=== PATIENT | male | born 1935 | race Caucasian/White ===

== ENCOUNTER → 2017-10-27 | Outpatient (CLI) | payer MEDICARE, OTHER ==
[~2017-10-27] MED LIST: ACIPHEX20 MG PO; ANTIVERT 25MG25 MG PO; ASPIR-LOW81 MG PO; ASPIRIN 32325 MG/TAB PO; ASPIRIN 81M81 MG/TA2 PO; BENAZEPRIL; CENTRUM SILVER1 TAB PO; DIAZEPAM PO; FLEXERIL 1010 MG/TAB PO; FOLIC ACID0.4 MG PO; HCTZ 25MG25 MG PO; LORTAB 5/500 501 TAB PO; LOTENSIN 1010 MG/TAB PO; MVI; NASONEX SPRAY; NEXIUM 20MG CAP20 MG PO; PAPAVERINE; VYTORIN; XALATAN EYE DROPS OU; [UNRECOGNIZED DRUG - OTHER]
== END ==
LOC: COL.RAD 08:48
DX: M25.78 Osteophyte, vertebrae (principal); M99.71 Connective tissue and disc stenosis of intervertebral foramina of cervical region; M50.31 Other cervical disc degeneration, high cervical region; M48.02 Spinal stenosis, cervical region

== ENCOUNTER → 2018-01-16 | Outpatient (CLI) | payer MEDICARE, OTHER | LOC: MHCPAIN 08:22 | DX: G89.29 Other chronic pain (principal); M54.12 Radiculopathy, cervical region; M47.812 Spondylosis without myelopathy or radiculopathy, cervical region; M48.02 Spinal stenosis, cervical region | CPT/HCPCS: G0463 ==

== ENCOUNTER → 2018-01-18 | Outpatient (CLI) | payer MEDICARE, OTHER | LOC: MHCPAIN 13:20 | DX: M54.12 Radiculopathy, cervical region (principal); M50.90 Cervical disc disorder, unspecified, unspecified cervical region | CPT/HCPCS: J1100; J2250; J3010; Q9967 ==

== ENCOUNTER 2018-01-25 15:03 | Emergency (ER) | payer MEDICARE, OTHER ==
[~2018-01-25] VITALS: Ht 182.9 cm; Wt 108.2 kg
[2018-01-25 15:07] VITALS: TEMP 98.2
[2018-01-25] MEDS ORDERED: ZOFRAN 4MG T4 MG/TAB PO (17:01)
[2018-01-25 17:30] LABS: BASO # 0.1 (0.0-0.2); BASO % 0.5 % (0.0-2.0); EOS # 0.3 (0.0-0.7); EOS % 2.3 % (0-4.0); GRAN # 9.7 (1.4-6.5); GRAN % 81.1 % (42.2-75.2); HEMATOCRIT 43.3 % (42.0-52.0); HEMOGLOBIN 14.2 g/dl (13.5-18.0); LYMPH # 1.2 (1.2-3.4); LYMPH % 10.1 % (20.0-51.0); MEAN CELL VOLUME 93 fl (80.0-100.0); MEAN CORPUSCULAR HEMOGLOBIN 31 pg (27.0-31.0); MEAN CORPUSCULAR HGB CONC 33 g/dl (33.0-37.0); MEAN PLATELET VOLUME 10.7 fl (7.4-10.4); MONO # 0.7 (0.1-0.6); MONO % 5.6 % (1.7-9.3); PLATELET COUNT 214 K/mm3 (130-400); RED BLOOD COUNT 4.65 M/mm3 (4.20-5.60); REDCELL DISTRIBUTION WIDTH-CV 12.5 % (11.5-14.5)
[2018-01-25 17:39] LABS: ALBUMIN 4.1 gm/dL (3.5-5.0); BILIRUBIN,TOTAL 1.2 mg/dL (0.0-1.0); CALCIUM 9.1 mg/dL (8.4-10.2); POTASSIUM 3.7 mmol/L (3.4-5.0); TOTAL PROTEIN 7.4 gm/dL (6.4-8.2)
[2018-01-25 19:18] VITALS: BP 116/72; PULSE 78
== END 2018-01-25 19:18 | disposition home or self-care (01) ==
LOC: COL.ER 15:03
PROVIDERS: Emergency Medicine
DX: R42 Dizziness and giddiness (principal); Z79.82 Long term (current) use of aspirin
CPT/HCPCS: Q9967

== ENCOUNTER → 2018-01-30 | Outpatient (CLI) | payer MEDICARE, OTHER ==
[~2018-01-30] MED LIST changes: +ZOFRAN 4MG T4 MG/TAB PO
== END ==
LOC: MHCPAIN 07:59
DX: G89.29 Other chronic pain (principal); M50.90 Cervical disc disorder, unspecified, unspecified cervical region; M54.12 Radiculopathy, cervical region; M54.81 Occipital neuralgia; R51 Headache; M48.02 Spinal stenosis, cervical region
CPT/HCPCS: G0463

== ENCOUNTER → 2018-02-08 | Outpatient (CLI) | payer MEDICARE, OTHER | LOC: MHCPAIN 14:19 | DX: M54.12 Radiculopathy, cervical region (principal); M50.90 Cervical disc disorder, unspecified, unspecified cervical region | CPT/HCPCS: J1100; Q9967 ==

== ENCOUNTER 2018-02-28 15:45 | Outpatient (RCR) | payer MEDICARE, OTHER | END 2018-03-06 14:12 | disposition home or self-care (01) | LOC: WSPT 15:45 | DX: M48.02 Spinal stenosis, cervical region (principal); M47.22 Other spondylosis with radiculopathy, cervical region; Z79.82 Long term (current) use of aspirin; Z79.899 Other long term (current) drug therapy | CPT/HCPCS: G8978-GP; G8979-GP; G8980-GP ==

== ENCOUNTER → 2018-03-28 | Outpatient (CLI) | payer MEDICARE, OTHER | LOC: COL.RAD 09:49 | DX: M50.322 Other cervical disc degeneration at C5-C6 level (principal) ==

== ENCOUNTER 2018-06-18 13:00 | Outpatient (RCR) | payer MEDICARE, OTHER | END 2018-07-11 13:17 | disposition home or self-care (01) | LOC: WSPT 13:00 | DX: M54.2 Cervicalgia (principal); R26.81 Unsteadiness on feet | CPT/HCPCS: G8978-GP; G8979-GP ==

== ENCOUNTER → 2018-07-03 | Outpatient (CLI) | payer MEDICARE, OTHER | LOC: MHCPAIN 08:00 | DX: G89.29 Other chronic pain (principal); M47.817 Spondylosis without myelopathy or radiculopathy, lumbosacral region; M54.16 Radiculopathy, lumbar region; M53.3 Sacrococcygeal disorders, not elsewhere classified; M48.061 Spinal stenosis, lumbar region without neurogenic claudication | CPT/HCPCS: G0463 ==

== ENCOUNTER → 2018-07-05 | Outpatient (CLI) | payer MEDICARE, OTHER | LOC: MHCPAIN 08:58 | DX: M47.817 Spondylosis without myelopathy or radiculopathy, lumbosacral region (principal); M54.16 Radiculopathy, lumbar region | CPT/HCPCS: J1100; Q9967 ==

== ENCOUNTER → 2018-07-16 | Outpatient (CLI) | payer MEDICARE, OTHER | LOC: MHCPAIN 10:15 | DX: G89.29 Other chronic pain (principal); M47.817 Spondylosis without myelopathy or radiculopathy, lumbosacral region; M54.16 Radiculopathy, lumbar region; M53.3 Sacrococcygeal disorders, not elsewhere classified; M96.1 Postlaminectomy syndrome, not elsewhere classified; M48.061 Spinal stenosis, lumbar region without neurogenic claudication | CPT/HCPCS: G0463 ==

== ENCOUNTER → 2018-07-19 | Outpatient (CLI) | payer MEDICARE, OTHER | LOC: MHCPAIN 10:01 | DX: M47.817 Spondylosis without myelopathy or radiculopathy, lumbosacral region (principal); M54.16 Radiculopathy, lumbar region | CPT/HCPCS: J1100; Q9967 ==

== ENCOUNTER 2018-11-22 10:00 | Outpatient (RCR) | payer MEDICARE, OTHER | END 2018-12-21 17:39 | disposition home or self-care (01) | LOC: WSPT 10:00 | DX: M48.062 Spinal stenosis, lumbar region with neurogenic claudication (principal); M47.16 Other spondylosis with myelopathy, lumbar region ==

== ENCOUNTER 2019-02-16 08:22 | Emergency (ER) | payer MEDICARE, OTHER ==
[~2019-02-16] VITALS: Ht 182.9 cm; Wt 109.1 kg
[~2019-02-16 08:22] MED LIST changes: +FLONASEALLERGY NS; -NASONEX SPRAY; -NEXIUM 20MG CAP20 MG PO; +PRIL40 PO
[2019-02-16 08:29] VITALS: PULSE 83; TEMP 98.1
[2019-02-16 09:14] LABS: COLLECTION METHOD CLEAN CATCH
[2019-02-16 09:18] LABS: BASO # 0.1 (0.0-0.2); BASO % 1.1 % (0.0-2.0); EOS # 0.4 (0.0-0.7); EOS % 4.9 % (0-4.0); GRAN # 5.8 (1.4-6.5); GRAN % 70.1 % (42.2-75.2); HEMATOCRIT 44.7 % (42.0-52.0); HEMOGLOBIN 14.7 g/dl (13.5-18.0); LYMPH # 1.3 (1.2-3.4); LYMPH % 15.6 % (20.0-51.0); MEAN CELL VOLUME 95 fl (80.0-100.0); MEAN CORPUSCULAR HEMOGLOBIN 31 pg (27.0-31.0); MEAN CORPUSCULAR HGB CONC 33 g/dl (33.0-37.0); MEAN PLATELET VOLUME 10.5 fl (7.4-10.4); MONO # 0.7 (0.1-0.6); MONO % 8.1 % (1.7-9.3); PLATELET COUNT 241 K/mm3 (130-400); RED BLOOD COUNT 4.73 M/mm3 (4.20-5.60); REDCELL DISTRIBUTION WIDTH-CV 12.7 % (11.5-14.5)
[2019-02-16 09:25] LABS: MUCOUS Present /lpf; PH 5 (5-8); SQUAMOUS EPITHELIAL None Seen /hpf; URINE APPEARANCE Clear; URINE BACTERIA None Seen /hpf; URINE BILIRUBIN Negative (NEGATIVE); URINE BLOOD Negative (NEGATIVE); URINE COLOR Yellow; URINE GLUCOSE Negative (NEGATIVE); URINE KETONE Negative (NEGATIVE); URINE LEUKOCYTE ESTERASE Trace (NEGATIVE); URINE NITRATE Negative (NEGATIVE); URINE PROTEIN(semi-quant) Negative (NEGATIVE); URINE RBC 0-2 /hpf; URINE UROBILINOGEN Negative (NEGATIVE)
[2019-02-16 09:30] LABS: ALBUMIN 4.6 gm/dL (3.5-5.0); BILIRUBIN,TOTAL 1.2 mg/dL (0.0-1.0); CALCIUM 9.7 mg/dL (8.4-10.2); CREATININE, serum 0.93 (0.66-1.25); POTASSIUM 4.1 mmol/L (3.4-5.0)
[2019-02-16 09:37] LABS: C-REACTIVE PROTEIN 0.5 mg/dL (0.0-0.9)
[2019-02-16] MEDS ORDERED: COLESTID 1GM1 G PO (11:38)
[2019-02-16] MEDS ORDERED: VOLTAREN 75 DR75 MG PO (11:38)
[2019-02-16] MEDS ORDERED: TYLENOL 500MG500 MG PO (11:39)
[2019-02-16] MEDS ORDERED: NORCO 325 MG-51 TAB PO (14:04)
[2019-02-16] MEDS ORDERED: FLEXERIL 1010 MG/TAB PO (14:04)
[2019-02-16] MEDS ORDERED: OMNICEF 300MG300 MG PO (14:04)
[2019-02-16 14:30] VITALS: BP 156/84
== END 2019-02-16 14:30 | disposition home or self-care (01) ==
LOC: COL.ER 08:22
PROVIDERS: Emergency Medicine
DX: R10.31 Right lower quadrant pain (principal); E78.5 Hyperlipidemia, unspecified; I10 Essential (primary) hypertension; I25.10 Atherosclerotic heart disease of native coronary artery without angina pectoris; Z79.51 Long term (current) use of inhaled steroids; Z79.82 Long term (current) use of aspirin; Z87.442 Personal history of urinary calculi; Z95.5 Presence of coronary angioplasty implant and graft
CPT/HCPCS: J2405; J3010; J7030; Q9967

== ENCOUNTER → 2019-03-20 | Outpatient (CLI) | payer MEDICARE, OTHER ==
[~2019-03-20] MED LIST changes: +COLESTID 1GM1 G PO; +NORCO 325 MG-51 TAB PO; +OMNICEF 300MG300 MG PO; +TYLENOL 500MG500 MG PO; +VOLTAREN 75 DR75 MG PO
== END ==
LOC: MHCPAIN 14:30
DX: M47.817 Spondylosis without myelopathy or radiculopathy, lumbosacral region (principal); M54.16 Radiculopathy, lumbar region
CPT/HCPCS: G0463

== ENCOUNTER → 2019-04-04 | Outpatient (CLI) | payer MEDICARE, OTHER | LOC: MHCPAIN 10:23 | DX: M54.5 Low back pain (principal) | CPT/HCPCS: G0260; J1040; Q9967 ==

== ENCOUNTER → 2019-05-07 | Outpatient (CLI) | payer MEDICARE, OTHER | LOC: MHCPAIN 09:07 | DX: M47.817 Spondylosis without myelopathy or radiculopathy, lumbosacral region (principal); M54.16 Radiculopathy, lumbar region | CPT/HCPCS: G0463 ==

== ENCOUNTER → 2019-05-20 | Outpatient (CLI) | payer MEDICARE, OTHER | LOC: COL.RAD 09:11 | DX: M47.812 Spondylosis without myelopathy or radiculopathy, cervical region (principal); R26.81 Unsteadiness on feet ==

== ENCOUNTER → 2019-11-05 | Outpatient (CLI) | payer MEDICARE, OTHER | LOC: MHCPAIN 14:43 | DX: M47.817 Spondylosis without myelopathy or radiculopathy, lumbosacral region (principal); M54.5 Low back pain; M53.3 Sacrococcygeal disorders, not elsewhere classified; G89.29 Other chronic pain; M96.1 Postlaminectomy syndrome, not elsewhere classified | CPT/HCPCS: G0463 ==

== ENCOUNTER → 2019-11-28 | Outpatient (CLI) | payer MEDICARE, OTHER | LOC: MHCPAIN 07:57 | DX: M47.818 Spondylosis without myelopathy or radiculopathy, sacral and sacrococcygeal region (principal); M53.3 Sacrococcygeal disorders, not elsewhere classified | CPT/HCPCS: G0260; J1040; Q9967 ==

== ENCOUNTER → 2019-12-31 | Outpatient (CLI) | payer MEDICARE, OTHER | LOC: MHCPAIN 08:57 | DX: M47.817 Spondylosis without myelopathy or radiculopathy, lumbosacral region (principal); M54.5 Low back pain; M53.3 Sacrococcygeal disorders, not elsewhere classified; G89.29 Other chronic pain; M96.1 Postlaminectomy syndrome, not elsewhere classified | CPT/HCPCS: G0463 ==

== ENCOUNTER → 2020-04-02 | Outpatient (CLI) | payer MEDICARE, OTHER ==
[~2020-04-02] MED LIST changes: +RT ADVAIR 228 DISKUS IH; +TOPROL XL 25MG25 MG PO
== END ==
LOC: MHCPAIN 08:06
DX: M47.818 Spondylosis without myelopathy or radiculopathy, sacral and sacrococcygeal region (principal); M53.3 Sacrococcygeal disorders, not elsewhere classified; M54.81 Occipital neuralgia
CPT/HCPCS: G0260; J1040; Q9967

== ENCOUNTER → 2021-05-06 | Outpatient (CLI) | payer MEDICARE, OTHER | LOC: MHCPAIN 09:03 | DX: M47.817 Spondylosis without myelopathy or radiculopathy, lumbosacral region (principal); M96.1 Postlaminectomy syndrome, not elsewhere classified; M54.16 Radiculopathy, lumbar region; M53.3 Sacrococcygeal disorders, not elsewhere classified | CPT/HCPCS: G0463; J1100; Q9967 ==

== ENCOUNTER → 2021-05-24 | Outpatient (CLI) | payer MEDICARE, OTHER | LOC: MHCPAIN 09:54 | DX: M47.817 Spondylosis without myelopathy or radiculopathy, lumbosacral region (principal); M54.50 Low back pain, unspecified; M53.3 Sacrococcygeal disorders, not elsewhere classified; M96.1 Postlaminectomy syndrome, not elsewhere classified | CPT/HCPCS: G0463 ==